=== PATIENT | male | born 1950 | race Hispanic/Latino ===

== ENCOUNTER → 2024-04-07 | Outpatient (CLI) | payer MEDICARE ==
[~2024-04-07] MED LIST: ACET-66 PO; APIX5TAB PO; CEFT2VIA13 IV; FAMO20TA8 PO; METO-408 PO; ONDA4VIA22 IJ; POTA-202 PO; [UNRECOGNIZED DRUG - CODE] IV
== END | disposition home or self-care (01) ==
LOC: SHCH 08:16
PROVIDERS: ATTEND Internal Medicine Cardiovascular Disease
DX: I48.0 Paroxysmal atrial fibrillation (principal)
CPT/HCPCS: 93306; 93308; 93321